=== PATIENT | female | born 1980 | race Caucasian/White ===

== ENCOUNTER → 2016-05-09 12:46 | Outpatient (CLI) | payer BC ==
[~2016-05-09 12:46] MED LIST: BUPROPION XL150 MG PO; DOXYCYCLINE HY100 M2 PO; HYDROCODON-ACE1 EAC7 PO; LAMISIL250 MG PO; MINIVELLE1 EAC1 TRANSDERM; SYNTHROID112 MCG PO; [UNRECOGNIZED DRUG - OTHER]
[2016-05-09 13:56] LABS: HCG SERUM NEGATIVE (NEGATIVE)
[2016-05-26 07:13] VITALS: BMI 22.7
== END | disposition home or self-care (01) ==
LOC: D.NM 12:46
PROVIDERS: Family Medicine
DX: R10.11 Right upper quadrant pain (principal)

== ENCOUNTER 2016-05-26 05:45 | Day surgery (SDC) | payer BC ==
[~2016-05-26] VITALS: Ht 162.6 cm; Wt 59.9 kg
[2016-05-26 06:45] LABS: HEMATOCRIT 40.2 % (36.0-48.0); HEMOGLOBIN 13.7 g/dL (12-16); MCH 30.9 pg (26.0-34.0); MCHC 34.1 g/dL (31.0-37.0); MCV 90.7 fL (80.0-100.0); MEAN PLATELET VOLUME 8.9 fL (7.4-10.4); RBC 4.43 10x6/uL (4.00-5.40); RDW 12.5 % (11.5-14.5); WBC 7.1 10x3/uL (4.8-10.8)
[2016-05-26] MEDS ORDERED: SYNTHROID112 MCG PO (06:56)
[2016-05-26] MEDS ORDERED: BUPROPION XL150 MG PO (06:57)
[2016-05-26] MEDS ORDERED: MINIVELLE1 EAC1 TRANSDERM (06:58)
[2016-05-26] MEDS ORDERED: DOXYCYCLINE HY100 M2 PO (06:58)
[2016-05-26] MEDS ORDERED: LAMISIL250 MG PO (06:58)
[2016-05-26] MEDS ORDERED: [UNRECOGNIZED DRUG - OTHER] (06:59)
[2016-05-26 07:13] VITALS: BP 124/72; Ht 162.6 cm; Wt 59.9 kg
[2016-05-26 07:21] LABS: HCG URINE NEGATIVE (NEGATIVE)
[2016-05-26] MEDS ORDERED: HYDROCODON-ACE1 EAC7 PO (09:05)
--- NOTE | 2016-05-26 11:34 | NUR ---
STATES NAUSEA IS BETTER. IV REMOVED WITH TIP INTACT. DISCHARGE INSTRUCTIONS AND RX GIVEN, VOICED UNDERSTANDING.
--- NOTE | 2016-05-26 12:07 | NUR ---
STATES WHEN SHE MOVES AROUND HAS SOME NAUSEA. INSTRUCTED THE ANESTHESIA WILL MAKE HER FEEL THAT WAY. INSTRUCTED ON SMALL SIPS AND ICE CHIPS UNTIL NAUSEA IS GONE.
--- NOTE | 2016-05-26 12:30 | NUR ---
STATES READY FOR DISCHARGE. DISCHARGED HOME VIA .
--- NOTE | 2016-05-26 17:07 | OP ---
PATIENT NAME: JAIME YANEZ MEDICAL RECORD: [id number] :76 LOCATION:[facility] ADMISSION DATE: SURGEON: BRI LUNA MD DATE OF OPERATION: 05/26/2016 SURGEON: Bri Luna MD PREOPERATIVE DIAGNOSES: 1. Biliary dyskinesia. 2. Right upper quadrant pain. POSTOPERATIVE DIAGNOSES: 1. Biliary dyskinesia. 2. Right upper quadrant pain. PROCEDURE PERFORMED: Laparoscopic cholecystectomy. SPECIMENS: Gallbladder. COMPLICATIONS: None. ESTIMATED BLOOD LOSS: 20 cc. OPERATIVE COURSE: After consent was obtained, the patient was taken to the operating room and placed in the supine position on the operating table. Next, general anesthesia was given via endotracheal intubation. After a timeout was taken to confirm the correct patient and procedure, the abdomen was prepped and draped in typical sterile fashion. Local anesthetic was injected just above the umbilicus. A stab incision was made with 11-blade scalpel. Using a 5-mm bladeless optical trocar, the abdomen was entered under direct laparoscopic vision. Adequate pneumoperitoneum was achieved. The abdominal cavity was inspected. No evidence of bowel injury. No evidence of bleeding. The patient was then placed into steep reverse Trendelenburg position. All remaining trocars were then placed after the administration of local anesthetic under direct laparoscopic vision, two 5-mm trocars in the right upper quadrant and 11-mm trocar in the subxiphoid position. The fundus of the gallbladder was grasped and retracted cephalad. The infundibulum was grasped and retracted laterally. The peritoneum was incised using electrocautery. Blunt dissection was then performed with a [place] dissector until the critical view was obtained, the cystic duct lateral, cystic artery medial, and liver in the posterior window. Intraoperative pictures were obtained at this time. Three clips were placed in the proximal cystic duct, 1 clip distal and 2 clips were placed in the proximal cystic artery. The duct and artery were then transected with laparoscopic Metzenbaum scissors. Remaining portion of the gallbladder was then dissected off the liver bed using electrocautery. Once complete, it was grasped with the tenaculum and removed through the 11-mm trocar, and sent for permanent pathology. Careful attention was paid to hemostasis, which was obtained in the liver bed using electrocautery. The operative field was then copiously irrigated and suctioned. The liver bed was inspected. There was no evidence of bleeding, no evidence of bile leakage. The clips were inspected. There were [address] in the cystic duct and [address] in the cystic artery. The abdominal cavity was inspected. There was no evidence of bowel injury. No evidence of bleeding, no evidence of bile leak. Again, the abdomen was irrigated and suctioned. At this time, all remaining instruments were removed. The abdomen was desufflated. Trocars were removed. Skin was OPERATIVE REPORT [id number] WHITE,SHIRELL A closed with 4-0 Monocryl, Mastisol and Steri-Strips. At the end of the case, all needle and instrument counts were correct. No complications occurred. The patient was extubated and transferred to the PACU in stable condition. TRANSINT:[id number] Voice Confirmation ID: [id number] DOCUMENT ID: [id number] BRI LUNA MD at 1707 CC: [id number] DICTATION DATE: 05/26/16 0904 HIRED WORKER: 05/26/16 1250 [facility] 05/26/16 [facility] [address] [place] [address]
== END 2016-05-26 12:30 | disposition home or self-care (01) ==
LOC: D.OPS 05:45 → D.PAN 11:30 → D.OPS 11:30
PROVIDERS: Anesthesiology; Surgery
DX: K82.8 Other specified diseases of gallbladder (principal); R10.11 Right upper quadrant pain; E03.9 Hypothyroidism, unspecified